=== PATIENT | female | born 1995 | race Caucasian/White ===

== ENCOUNTER 2016-05-27 09:26 | Emergency (ER) | payer OTHER, SELFPAY ==
[2016-05-27] MEDS ORDERED: Diazepam 5 MG TAB ONE (10:06)
[2016-05-27] MEDS ORDERED: Ondansetron ODT 4 MG TAB ONE (10:07)
[2016-05-27] MEDS ORDERED: Meclizine HCl 25 MG TAB ONE (10:07)
== END 2016-05-27 10:28 | disposition home or self-care (01) ==
LOC: MADERS 09:26
DX: H81.13 Benign paroxysmal vertigo, bilateral (principal); F41.9 Anxiety disorder, unspecified; F17.210 Nicotine dependence, cigarettes, uncomplicated
CPT/HCPCS: 99283; Q0162

== ENCOUNTER 2016-07-08 08:12 | Emergency (ER) | payer SELFPAY ==
[2016-07-08] MEDS ORDERED: Ibuprofen 600 MG TAB ONE (08:42)
[2016-07-08] MEDS ORDERED: Benzonatate 100 MG CAP ONE (08:42)
[2016-07-08 09:05] LABS: Bilirubin Negative (Negative); Blood, Urine Negative (Negative); Clarity Clear (Clear); Glucose, Urine (Dipstick) Negative (Negative); Leukocyte Negative (Negative); Nitrite Negative (Negative); Protein, Urine (Dipstick) Negative (Neg-Trace); Specific Gravity, Urine 1.015 (1.005-1.030); Urobilinogen 0.2 mg/dL (0.2-1.0)
== END 2016-07-08 09:17 | disposition home or self-care (01) ==
LOC: MADERS 08:12
DX: J06.9 Acute upper respiratory infection, unspecified (principal); K58.9 Irritable bowel syndrome, unspecified; M79.7 Fibromyalgia; F17.210 Nicotine dependence, cigarettes, uncomplicated
CPT/HCPCS: 81003; 87081; 87430; 99283

== ENCOUNTER 2016-10-01 13:25 | Emergency (ER) | payer SELFPAY ==
[2016-10-01] MEDS ORDERED: Ketorolac Tromethamine 60 MG/2 ML VIAL ONE (14:08)
== END 2016-10-01 14:30 | disposition home or self-care (01) ==
LOC: MADERS 13:25
DX: M41.9 Scoliosis, unspecified (principal); F41.9 Anxiety disorder, unspecified; F17.210 Nicotine dependence, cigarettes, uncomplicated
CPT/HCPCS: 96372; J1885

== ENCOUNTER 2017-05-02 11:43 | Emergency (ER) | payer SELFPAY ==
[2017-05-02] MEDS ORDERED: Metoclopramide HCl 10 MG TAB ONE (12:11)
[2017-05-02] MEDS ORDERED: diphenhydrAMINE 25 MG CAP ONE (12:11)
== END 2017-05-02 12:23 | disposition home or self-care (01) ==
LOC: MADERS 11:43
DX: G43.909 Migraine, unspecified, not intractable, without status migrainosus (principal); H81.13 Benign paroxysmal vertigo, bilateral; K58.9 Irritable bowel syndrome, unspecified; F17.210 Nicotine dependence, cigarettes, uncomplicated; F41.9 Anxiety disorder, unspecified
CPT/HCPCS: 99283

== ENCOUNTER 2017-05-31 10:18 | Emergency (ER) | payer SELFPAY ==
[2017-05-31] MEDS ORDERED: Ondansetron ODT 4 MG TAB ONE (11:32)
[2017-05-31] MEDS ORDERED: Naproxen 500 MG TAB ONE (11:32)
== END 2017-05-31 12:35 | disposition home or self-care (01) ==
LOC: MADERS 10:18
DX: J02.9 Acute pharyngitis, unspecified (principal); F41.9 Anxiety disorder, unspecified; G43.909 Migraine, unspecified, not intractable, without status migrainosus; F17.210 Nicotine dependence, cigarettes, uncomplicated
CPT/HCPCS: 87081; 87430; 99283; Q0162

== ENCOUNTER 2017-06-02 14:58 | Emergency (ER) | payer SELFPAY ==
[2017-06-02] MEDS ORDERED: Ketorolac Tromethamine 30 MG/ML VIAL ONE (15:14)
[2017-06-02 15:23] LABS: Bilirubin Negative (Negative); Blood, Urine Negative (Negative); Clarity Clear (Clear); Glucose, Urine (Dipstick) Negative (Negative); Leukocyte Negative (Negative); Nitrite Negative (Negative); Pregnancy Test - Urine (BHCG) Negative (Negative); Pregu Control Background? CLEAR/WHITE (CLR/WHITE); Pregu Control Bar Appear? YES (CONTROL BAR); Protein, Urine (Dipstick) Negative (Neg-Trace); Urobilinogen 0.2 mg/dL (0.2-1.0)
== END 2017-06-02 15:40 | disposition home or self-care (01) ==
LOC: MADERS 14:58
DX: M54.5 Low back pain (principal); M41.9 Scoliosis, unspecified; K58.9 Irritable bowel syndrome, unspecified; G43.909 Migraine, unspecified, not intractable, without status migrainosus; F41.9 Anxiety disorder, unspecified; F17.210 Nicotine dependence, cigarettes, uncomplicated
CPT/HCPCS: 81003; 81025; 96372; J1885

== ENCOUNTER 2017-07-06 08:07 | Emergency (ER) | payer SELFPAY ==
[2017-07-06] MEDS ORDERED: Benzonatate 100 MG CAP ONE (08:37)
[2017-07-06] MEDS ORDERED: Azithromycin 250 MG TAB ONE (08:38)
[2017-07-06] MEDS ORDERED: Dexamethasone 4 MG TAB ONE (08:38)
== END 2017-07-06 08:45 | disposition home or self-care (01) ==
LOC: MADERS 08:07
DX: J18.9 Pneumonia, unspecified organism (principal); K58.9 Irritable bowel syndrome, unspecified; M41.9 Scoliosis, unspecified; G43.909 Migraine, unspecified, not intractable, without status migrainosus; F41.9 Anxiety disorder, unspecified; F17.210 Nicotine dependence, cigarettes, uncomplicated
CPT/HCPCS: 99283; J8540

== ENCOUNTER 2017-09-16 07:09 | Emergency (ER) | payer SELFPAY ==
[2017-09-16 07:58] LABS: Bilirubin Negative (Negative); Blood, Urine Negative (Negative); Clarity Clear (Clear); Glucose, Urine (Dipstick) Negative (Negative); Leukocyte Negative (Negative); Nitrite Negative (Negative); Protein, Urine (Dipstick) Negative (Neg-Trace); Urobilinogen 0.2 mg/dL (0.2-1.0); pH, Urine 5.5 (5.0-9.0)
[2017-09-16] MEDS ORDERED: Ondansetron ODT 4 MG TAB ONE (07:59)
[2017-09-16] MEDS ORDERED: Ketorolac Tromethamine 30 MG/ML VIAL ONE (07:59)
[2017-09-16 08:03] LABS: Bacteria/HPF Rare-Few HPF (None Seen); Hyaline Casts/LPF NONE SEEN LPF (0-3 Hyaline); RBC/HPF None Seen HPF (0-3); WBC/HPF 0-3 HPF (0-3)
[2017-09-16] MEDS ORDERED: Sodium Chloride 0.9% 1,000 ML BAG ONE (08:03)
[2017-09-16 08:08] LABS: #Basophils 0.1 thou/uL (0.0-0.2); #Eosinphils 0.1 thou/uL (0.0-0.7); #Lymphocytes 2.7 thou/uL (1.20-3.40); #Monocytes 0.7 thou/uL (0.11-0.59); %Basophils 1.2 % (0.0-1.0); %Eosinophils 1.7 % (0.0-10.0); %Lymphocytes 35.9 % (21.0-51.0); %Monocytes 8.5 % (0.0-10.0); %Neutrophils 52.7 % (42.0-75.0); Hemoglobin 13.3 g/dL (12.0-16.0); Mean Corpuscular HGB CONC 34.3 g/dL (32.0-36.0); Mean Corpuscular Hemoglobin 29.6 pg (27.0-31.0); Mean Corpuscular Volume 86.3 fL (78.0-98.0); Mean Platelet Volume 6.9 fL (7.4-10.4); Platelet Count 289 thou/uL (130-400); RBC Distribution Width 10.4 % (11.5-14.5); Red Blood Cell (RBC) Count 4.48 mill/uL (4.20-5.40); White Blood Cell (WBC) Count 7.6 thou/uL (4.8-10.8)
[2017-09-16 08:22] LABS: ALT (SGPT) 13 U/L (8-55); AST (SGOT) 15 U/L (5-34); Albumin 4.2 g/dL (3.5-5.0); Alkaline Phosphatase 72 U/L (40-150); Anion Gap 14 mmol/L (10-20); BUN (Urea Nitrogen) 16 mg/dL (7.0-18.7); Bilirubin, Total 0.3 mg/dL (0.2-1.2); CK (CPK) 62 U/L (29-168); Calc. Creatinine Clearance 0 mL/min (70-130); Calcium 9.3 mg/dL (7.8-10.44); Carbon Dioxide 23 mmol/L (22-29); Chloride 107 mmol/L (98-107); Estimated GFR-MDRD 89; Globulin 2.5 g/dL (2.4-3.5); Glucose 95 mg/dL (70-105); Potassium 3.9 mmol/L (3.5-5.1); Protein, Total 6.7 g/dL (6.0-8.3); Sodium 140 mmol/L (136-145)
[2017-09-16 08:45] LABS: BHCG - Serum Negative (NEGATIVE); Pregs Control Background? CLEAR/WHITE (CLR/WHITE); Pregs Control Bar Appear? YES (CONTROL BAR)
--- NOTE | 2017-09-16 08:49 | RAD ---
2 VIEW CHEST: Date: 09/16/17 HISTORY: Cough. FINDINGS: Lung denis appear clear. No evidence of infiltrate. Heart and mediastinum unremarkable. There is a mild thoracic scoliotic curvature to the right. IMPRESSION: 1. No acute lung process. 2. Mild scoliotic curvature of the thoracic spine. POS: [facility]
[2017-09-16] MEDS ORDERED: Fluconazole 100 MG TAB ONE (09:16)
== END 2017-09-16 09:50 | disposition home or self-care (01) ==
LOC: MADERS 07:09
DX: B37.3 Candidiasis of vulva and vagina (principal); F41.9 Anxiety disorder, unspecified; F17.210 Nicotine dependence, cigarettes, uncomplicated
CPT/HCPCS: 71046; 80053; 81001; 82550; 84703; 85025; 87086; 96361; 96374; J1885; J7050; Q0162

== ENCOUNTER 2017-09-30 08:09 | Emergency (ER) | payer SELFPAY ==
[2017-09-30] MEDS ORDERED: Acetaminophen/Codeine 30-300mg Tablet ONE (08:31)
[2017-09-30] MEDS ORDERED: Naproxen 500 MG TAB ONE (08:32)
[2017-09-30] MEDS ORDERED: Azithromycin 250 MG TAB ONE (08:32)
[2017-09-30] MEDS ORDERED: Sulfameth/Trimethoprim DS 800-160mg TAB ONE (08:32)
== END 2017-09-30 08:50 | disposition home or self-care (01) ==
LOC: MADERS 08:09
DX: K04.7 Periapical abscess without sinus (principal); K02.9 Dental caries, unspecified; K03.81 Cracked tooth; K58.9 Irritable bowel syndrome, unspecified; F41.9 Anxiety disorder, unspecified; F17.210 Nicotine dependence, cigarettes, uncomplicated
CPT/HCPCS: 99282

== ENCOUNTER 2017-10-31 10:20 | Emergency (ER) | payer SELFPAY ==
[~2017-10-31 10:20] MED LIST: Morphine 10 MG/ML CARPUJECT ONE
[2017-10-31] MEDS ORDERED: Clindamycin 150 MG CAP ONE (10:50)
[2017-10-31] MEDS ORDERED: Ketorolac Tromethamine 30 MG/ML VIAL ONE (10:50)
== END 2017-10-31 11:27 | disposition home or self-care (01) ==
LOC: MADERS 10:20
DX: K04.7 Periapical abscess without sinus (principal); F31.9 Bipolar disorder, unspecified; F41.9 Anxiety disorder, unspecified; F20.9 Schizophrenia, unspecified; F17.210 Nicotine dependence, cigarettes, uncomplicated
CPT/HCPCS: 96372; J1885; J2270

== ENCOUNTER 2017-12-19 19:30 | Emergency (ER) | payer SELFPAY | END 2017-12-19 19:54 | disposition home or self-care (01) | LOC: MADERS 19:30 | DX: K08.89 Other specified disorders of teeth and supporting structures (principal); K58.9 Irritable bowel syndrome, unspecified; F41.9 Anxiety disorder, unspecified; F31.9 Bipolar disorder, unspecified; F20.9 Schizophrenia, unspecified; F17.210 Nicotine dependence, cigarettes, uncomplicated; G43.909 Migraine, unspecified, not intractable, without status migrainosus | CPT/HCPCS: 99281 ==

== ENCOUNTER 2018-03-26 13:55 | Emergency (ER) | payer SELFPAY ==
[~2018-03-26 13:55] MED LIST changes: +Iopamidol 370 76% 100 ML VIAL ONE; -Morphine 10 MG/ML CARPUJECT ONE
[2018-03-26 14:50] LABS: Pregnancy Test - Urine (BHCG) Negative (Negative); Pregu Control Background? CLEAR/WHITE (CLR/WHITE); Pregu Control Bar Appear? YES (CONTROL BAR)
[2018-03-26 14:51] LABS: Bilirubin Negative (Negative); Blood, Urine Negative (Negative); Clarity Clear (Clear); Glucose, Urine (Dipstick) Negative (Negative); Leukocyte Negative (Negative); Nitrite Negative (Negative); Protein, Urine (Dipstick) Negative (Neg-Trace); Urobilinogen 0.2 mg/dL (0.2-1.0)
[2018-03-26 14:54] LABS: #Basophils 0.1 thou/uL (0.0-0.2); #Eosinphils 0.1 thou/uL (0.0-0.7); #Lymphocytes 1.9 thou/uL (1.20-3.40); #Monocytes 0.8 thou/uL (0.11-0.59); #Neutrophils 7.8 thou/uL (1.40-6.50); %Basophils 0.8 % (0.0-1.0); %Eosinophils 0.7 % (0.0-10.0); %Monocytes 7.7 % (0.0-10.0); %Neutrophils 72.7 % (42.0-75.0); Hemoglobin 13.5 g/dL (12.0-16.0); Mean Corpuscular HGB CONC 33.7 g/dL (32.0-36.0); Mean Corpuscular Hemoglobin 30.6 pg (27.0-31.0); Mean Corpuscular Volume 90.8 fL (78.0-98.0); Mean Platelet Volume 6.5 fL (7.4-10.4); Platelet Count 374 thou/uL (130-400); RBC Distribution Width 11.4 % (11.5-14.5); Red Blood Cell (RBC) Count 4.43 mill/uL (4.20-5.40); White Blood Cell (WBC) Count 10.7 thou/uL (4.8-10.8)
[2018-03-26 15:00] LABS: Amphetamine Detected (NotDetected); Barbiturates Screen Not Detected (NotDetected); Benzodiazepine Screen Detected (NotDetected); Cocaine Metabolite Screen Not Detected (NotDetected); Medtox Control Line Valid? VALID (VALID); Methadone Not Detected (NotDetected); Methamphetamine Detected (NotDetected); Opiate Screen Detected (NotDetected); Oxycodone Screen Not Detected (NotDetected); Phencyclidine (PCP) Not Detected (NotDetected); THC/Cannabinoid Screen Not Detected (NotDetected); Tricyclic Screen Not Detected (NotDetected)
[2018-03-26] MEDS ORDERED: Fentanyl 100 MCG/2 ML VIAL ONE (15:00)
[2018-03-26] MEDS ORDERED: Ondansetron PF 4 MG/2 ML Vial ONE (15:00)
--- NOTE | 2018-03-26 15:44 | CT ---
CT NECK WITH CONTRAST: INDICATIONS: Injury to neck yesterday with swelling on right side of neck. TECHNIQUE: Multiple axial tomograms obtained through the neck with IV enhancement. FINDINGS: The parotid glands and submandibular glands show symmetric enhancement and appear unremarkable. The thyroid is unremarkable. There is an abnormal area of low attenuation in the right neck, along the lateral border of the right sternocleidomastoid muscle, and extending slightly anterior to the right sternocleidomastoid muscle, abutting the right submandibular gland. This measures 3 cm in AP dimension x approximately 1.5 cm i n width. It does exhibit some mild peripheral enhancement with a low attenuation center. Considerat ions include soft tissue hematoma and abscess. The nasopharynx is unremarkable. The oropharynx shows a prominent Waldeyer's ring and tonsillar tiss ue. The hypopharynx and larynx are unremarkable. The parapharyngeal space, the doping supervisor space, an d the retropharyngeal space are unremarkable. The paranasal sinuses and mastoids are well aerated and clear. The cervical spine is unremarkable. Review of the lymph nodes shows no evidence of adenopathy. Nonspecific level II jugulodigastric node s are seen bilaterally. IMPRESSION: There is a peripherally-enhancing, irregularly-shaped, low-density mass lesion in the right neck, liu ng the lateral margin of the sternocleidomastoid muscle, as described above. Findings may represent hematoma given the history of trauma. Abscess cannot be excluded radiographically. Continued follow up to ensure resolution is recommended. POS: [facility]
[2018-03-26 15:54] LABS: ALT (SGPT) 24 U/L (8-55); AST (SGOT) 28 U/L (5-34); Alkaline Phosphatase 96 U/L (40-150); Anion Gap 14 mmol/L (10-20); BUN (Urea Nitrogen) 11 mg/dL (7.0-18.7); Bilirubin, Total 0.3 mg/dL (0.2-1.2); Calc. Creatinine Clearance 0 mL/min (70-130); Calcium 9.3 mg/dL (7.8-10.44); Carbon Dioxide 22 mmol/L (22-29); Chloride 107 mmol/L (98-107); Estimated GFR-MDRD Greater than 90; Globulin 3.2 g/dL (2.4-3.5); Glucose 100 mg/dL (70-105); Potassium 3.4 mmol/L (3.5-5.1); Protein, Total 7.2 g/dL (6.0-8.3); Sodium 140 mmol/L (136-145)
--- NOTE | 2018-03-26 15:59 | RAD ---
CHEST TWO VIEWS WITH RIGHT RIBS FOUR VIEWS: INDICATIONS: History of trauma with chest pain. COMPARISON: 10/27/2014 FINDINGS: The thoracic scoliosis is stable. The lungs are clear. No pneumothorax is evident. No displaced ri b fracture is evident. There is a healed posterolateral right 7th rib fracture. No acute fracture i s grossly evident. There is contrast within the renal collecting system, most likely from the patien t's recent CT evaluation of the soft tissues of the neck, performed on 03/26/2018. IMPRESSION: 1. No acute displaced rib fracture. 2. Chronic healed right posterolateral 7th rib fracture. POS: [facility]
== END 2018-03-26 16:20 | disposition home or self-care (01) ==
LOC: MADERS 13:55
DX: S10.93XA Contusion of unspecified part of neck, initial encounter (principal); S20.211A Contusion of right front wall of thorax, initial encounter; G43.909 Migraine, unspecified, not intractable, without status migrainosus; F41.9 Anxiety disorder, unspecified; F31.9 Bipolar disorder, unspecified; F20.9 Schizophrenia, unspecified; F17.210 Nicotine dependence, cigarettes, uncomplicated; K58.9 Irritable bowel syndrome, unspecified; Y04.8XXA Assault by other bodily force, initial encounter; M41.9 Scoliosis, unspecified
CPT/HCPCS: 70491; 80053; 80306; 81003; 81025; 82550; 85025; 96374; 96375; J2405; J3010

== ENCOUNTER 2018-03-28 08:27 | Emergency (ER) | payer SELFPAY ==
[~2018-03-28 08:27] MED LIST changes: -Iopamidol 370 76% 100 ML VIAL ONE; +Sodium Chloride Irrig Solution 250 ML BOT ONE
[2018-03-28] MEDS ORDERED: Lidocaine 1% w/Epinephrine 1:100K 30 ML VIAL ONE (09:04)
[2018-03-28] MEDS ORDERED: Triple Antibiotic Oint 1 GM Packet ONE (09:29)
[2018-03-28] MEDS ORDERED: Adacel (T-DAP) 0.5 ML SYRINGE ONE (09:49)
== END 2018-03-28 10:03 | disposition home or self-care (01) ==
LOC: MADERS 08:27
DX: S91.012A Laceration without foreign body, left ankle, initial encounter (principal); G43.909 Migraine, unspecified, not intractable, without status migrainosus; F41.9 Anxiety disorder, unspecified; F31.9 Bipolar disorder, unspecified; F20.9 Schizophrenia, unspecified; F17.210 Nicotine dependence, cigarettes, uncomplicated; W26.8XXA Contact with other sharp object(s), not elsewhere classified, initial encounter
CPT/HCPCS: 12002; 90471; 90715; J2001

== ENCOUNTER 2018-07-07 15:14 | Emergency (ER) | payer SELFPAY ==
[~2018-07-07 15:14] MED LIST changes: +Lidocaine 1% w/Epinephrine 1:100K 30 ML VIAL ONE
[2018-07-07] MEDS ORDERED: Clindamycin 150 MG CAP ONE (16:46)
[2018-07-07] MEDS ORDERED: Adacel (T-DAP) 0.5 ML SYRINGE ONE (16:46)
--- NOTE | 2018-07-07 17:02 | RAD ---
TWO VIEWS RIGHT FOREARM 07/07/18 HISTORY: Patient with history of right forearm pain. AP and lateral views right forearm is obtained. No evidence of right forearm fractures, subluxations, or bony lesions seen. IMPRESSION: Unremarkable two views right forearm. POS: [facility]
== END 2018-07-07 16:59 | disposition home or self-care (01) ==
LOC: MADERS 15:14
DX: L02.413 Cutaneous abscess of right upper limb (principal); L03.113 Cellulitis of right upper limb; F15.10 Other stimulant abuse, uncomplicated; F41.9 Anxiety disorder, unspecified; F25.9 Schizoaffective disorder, unspecified; F17.210 Nicotine dependence, cigarettes, uncomplicated; K58.9 Irritable bowel syndrome, unspecified
CPT/HCPCS: 10060; 90471; 90715; J2001

== ENCOUNTER 2018-11-19 21:42 | Emergency (ER) | payer SELFPAY ==
[2018-11-19] MEDS ORDERED: predniSONE 20 MG TAB ONE (22:27)
== END 2018-11-19 22:36 | disposition home or self-care (01) ==
LOC: MADERS 21:42
DX: J02.9 Acute pharyngitis, unspecified (principal); J45.909 Unspecified asthma, uncomplicated; G43.909 Migraine, unspecified, not intractable, without status migrainosus; F31.9 Bipolar disorder, unspecified; F20.9 Schizophrenia, unspecified; F41.9 Anxiety disorder, unspecified; F17.210 Nicotine dependence, cigarettes, uncomplicated
CPT/HCPCS: 87081; 87430; 99283; J7512

== ENCOUNTER 2019-11-01 16:16 | Emergency (ER) | payer SELFPAY ==
[2019-11-01] MEDS ORDERED: Ketorolac Tromethamine 30 MG/ML VIAL ONE (16:43)
[2019-11-01] MEDS ORDERED: Lidocaine 1% 20 ML MDV ONE (16:51)
[2019-11-01] MEDS ORDERED: Lidocaine 2% w/Epinephrine 1:200K 20 ML VIAL ONE (17:25)
--- NOTE | 2019-11-01 17:32 | RAD ---
LEFT ANKLE 3 VIEWS: Date: 11/01/2019 COMPARISON: None. HISTORY: Trauma, pain. FINDINGS: There is soft tissue swelling overlying the lateral malleolus. There is a fracture involving the late ral cortex of the distal aspect of the lateral malleolus with no significant displacement. No disloca tion or additional fracture is seen. IMPRESSION: Fracture involving the lateral cortex of the distal left fibula with associated soft tissue swelling. POS: [facility]
[2019-11-01] MEDS ORDERED: Triple Antibiotic Oint 1 GM Packet ONE (17:54)
[2019-11-01] MEDS ORDERED: Ondansetron ODT 4 MG TAB ONE (17:54)
[2019-11-01] MEDS ORDERED: Sulfameth/Trimethoprim DS 800-160mg TAB ONE (18:12)
[2019-11-01] MEDS ORDERED: Cephalexin 500 MG CAP ONE (18:12)
== END 2019-11-01 18:25 | disposition home or self-care (01) ==
LOC: MADERS 16:16
DX: S82.65XA Nondisplaced fracture of lateral malleolus of left fibula, initial encounter for closed fracture (principal); S91.012A Laceration without foreign body, left ankle, initial encounter; M79.7 Fibromyalgia; J45.909 Unspecified asthma, uncomplicated; G43.909 Migraine, unspecified, not intractable, without status migrainosus; F41.9 Anxiety disorder, unspecified; F31.9 Bipolar disorder, unspecified; F20.9 Schizophrenia, unspecified; F17.210 Nicotine dependence, cigarettes, uncomplicated; Z79.899 Other long term (current) drug therapy; Y00.XXXA Assault by blunt object, initial encounter
CPT/HCPCS: 12001; 96372; J1885; J2001; Q0162

== ENCOUNTER 2019-12-31 05:20 | Emergency (ER) | payer OTHER, SELFPAY ==
[2019-12-31] MEDS ORDERED: predniSONE 20 MG TAB ONE (06:03)
[2019-12-31] MEDS ORDERED: Azithromycin 250 MG TAB ONE (06:03)
[2019-12-31 19:12] LABS: SARS-CoV-2 MS2 Positive; SARS-CoV-2 N Gene Negative; SARS-CoV-2 S Gene Negative; SARS-CoV-2 by NAA Not Detected (NotDetected); SARS-CoV-2 orf1ab Negative
== END 2019-12-31 06:10 | disposition home or self-care (01) ==
LOC: MADERS 05:20
DX: J02.0 Streptococcal pharyngitis (principal); Z20.828 Contact with and (suspected) exposure to other viral communicable diseases; I10 Essential (primary) hypertension; J45.909 Unspecified asthma, uncomplicated; M79.7 Fibromyalgia; G43.909 Migraine, unspecified, not intractable, without status migrainosus; F41.9 Anxiety disorder, unspecified; F31.9 Bipolar disorder, unspecified; F20.9 Schizophrenia, unspecified; F17.210 Nicotine dependence, cigarettes, uncomplicated; Z79.899 Other long term (current) drug therapy
CPT/HCPCS: 87635; 99406; J7512; U0003

== ENCOUNTER 2020-02-12 09:22 | Emergency (ER) | payer OTHER, SELFPAY | END 2020-02-12 10:18 | disposition home or self-care (01) | LOC: MADERS 09:22 | DX: H60.91 Unspecified otitis externa, right ear (principal); I10 Essential (primary) hypertension; J45.909 Unspecified asthma, uncomplicated; M79.7 Fibromyalgia; G43.909 Migraine, unspecified, not intractable, without status migrainosus; F41.9 Anxiety disorder, unspecified; F31.9 Bipolar disorder, unspecified; F20.9 Schizophrenia, unspecified; F17.210 Nicotine dependence, cigarettes, uncomplicated; Z79.899 Other long term (current) drug therapy | CPT/HCPCS: 99406 ==

== ENCOUNTER 2020-04-13 11:01 | Emergency (ER) | payer SELFPAY ==
--- NOTE | 2020-04-13 12:07 | RAD ---
Exam:3 views left foot HISTORY: Evaluate for foreign body COMPARISON: None FINDINGS: No fracture, cortical irregularity or periosteal reaction. Lisfranc alignment is maintained . Joint spaces are preserved. No radiopaque foreign body. IMPRESSION: No radiopaque foreign body.
== END 2020-04-13 12:15 | disposition home or self-care (01) ==
LOC: MADERS 11:01
DX: S90.812A Abrasion, left foot, initial encounter (principal); I10 Essential (primary) hypertension; K58.9 Irritable bowel syndrome, unspecified; J45.909 Unspecified asthma, uncomplicated; M41.9 Scoliosis, unspecified; G43.909 Migraine, unspecified, not intractable, without status migrainosus; F17.210 Nicotine dependence, cigarettes, uncomplicated; Z79.899 Other long term (current) drug therapy; W26.9XXA Contact with unspecified sharp object(s), initial encounter

== ENCOUNTER 2020-07-25 06:53 | Emergency (ER) | payer BC, SELFPAY ==
[2020-07-25 21:02] LABS: SARS-CoV-2 PCR by NAA Not Detected (NotDetected)
== END 2020-07-25 07:50 ==
LOC: MADERS 06:53
DX: Z20.822 Contact with and (suspected) exposure to COVID-19 (principal); M41.9 Scoliosis, unspecified; G43.909 Migraine, unspecified, not intractable, without status migrainosus; K58.9 Irritable bowel syndrome, unspecified; I10 Essential (primary) hypertension; J45.909 Unspecified asthma, uncomplicated; F17.210 Nicotine dependence, cigarettes, uncomplicated; Z79.899 Other long term (current) drug therapy
CPT/HCPCS: 87635; 99283; U0003; U0005

== ENCOUNTER 2020-12-10 17:55 | Emergency (ER) | payer SELFPAY ==
[2020-12-10 18:59] LABS: SARS-CoV-2 NAA Rapid Test Not Detected (NotDetected)
== END 2020-12-10 19:09 | disposition home or self-care (01) ==
LOC: MADERS 17:55
DX: R05 Cough (principal); R43.8 Other disturbances of smell and taste; R52 Pain, unspecified; Z20.822 Contact with and (suspected) exposure to COVID-19; M41.9 Scoliosis, unspecified; I10 Essential (primary) hypertension; G43.909 Migraine, unspecified, not intractable, without status migrainosus; K58.9 Irritable bowel syndrome, unspecified; J45.909 Unspecified asthma, uncomplicated; F17.210 Nicotine dependence, cigarettes, uncomplicated
CPT/HCPCS: 99283; U0002

== ENCOUNTER 2020-12-10 21:45 | Emergency (ER) | payer SELFPAY ==
[~2020-12-10 21:45] MED LIST changes: +Iopamidol 370 76% 125 ML VIAL FS ONE; -Lidocaine 1% w/Epinephrine 1:100K 30 ML VIAL ONE; -Sodium Chloride Irrig Solution 250 ML BOT ONE
[2020-12-10] MEDS ORDERED: Ketorolac Tromethamine 30 MG/ML VIAL ONE (23:54)
== END 2020-12-11 00:08 ==
LOC: MADERS 21:45
DX: S10.93XA Contusion of unspecified part of neck, initial encounter (principal); M79.12 Myalgia of auxiliary muscles, head and neck; J45.909 Unspecified asthma, uncomplicated; R73.03 Prediabetes; M41.9 Scoliosis, unspecified; K21.9 Gastro-esophageal reflux disease without esophagitis; K58.9 Irritable bowel syndrome, unspecified; G43.909 Migraine, unspecified, not intractable, without status migrainosus; I10 Essential (primary) hypertension; G40.909 Epilepsy, unspecified, not intractable, without status epilepticus; Z79.1 Long term (current) use of non-steroidal anti-inflammatories (NSAID); Y04.0XXA Assault by unarmed brawl or fight, initial encounter
CPT/HCPCS: 70450; 70498; 72125; J1885; Q9967

== ENCOUNTER 2022-01-07 21:35 | Emergency (ER) | payer OTHER, SELFPAY ==
[~2022-01-07 21:35] MED LIST changes: +Iopamidol 370 76% 100 ML VIAL ONE; -Iopamidol 370 76% 125 ML VIAL FS ONE
[2022-01-07] MEDS ORDERED: Fentanyl 100 MCG/2 ML VIAL ONE (23:09)
[2022-01-07 23:24] LABS: #Basophils 0.1 thou/uL (0.0-0.2); #Eosinphils 0.3 thou/uL (0.0-0.7); #Lymphocytes 2.4 thou/uL (1.20-3.40); #Neutrophils 8.5 thou/uL (1.40-6.50); %Basophils 0.6 % (0.0-1.0); %Eosinophils 2.8 % (0.0-10.0); %Lymphocytes 19.5 % (21.0-51.0); %Monocytes 8.1 % (0.0-10.0); Mean Corpuscular HGB CONC 32.8 g/dL (32.0-36.0); Mean Corpuscular Hemoglobin 29.9 pg (27.0-31.0); Mean Corpuscular Volume 91.1 fL (78.0-98.0); Mean Platelet Volume 6.5 fL (7.4-10.4); Platelet Count 338 thou/uL (130-400); RBC Distribution Width 11.3 % (11.5-14.5); Red Blood Cell (RBC) Count 4.34 mill/uL (4.20-5.40); White Blood Cell (WBC) Count 12.3 thou/uL (4.8-10.8)
[2022-01-07] MEDS ORDERED: Gentamicin 80 MG/2 ML VIAL ONE (23:28)
[2022-01-07 23:37] LABS: BHCG - Serum Negative (NEGATIVE); Pregs Control Background? CLEAR/WHITE (CLR/WHITE); Pregs Control Bar Appear? YES (CONTROL BAR)
[2022-01-07 23:45] LABS: ALT (SGPT) 17 U/L (8-55); AST (SGOT) 16 U/L (5-34); Albumin 4.5 g/dL (3.5-5.0); Alkaline Phosphatase 74 U/L (40-110); Anion Gap 12 mmol/L (10-20); BUN (Urea Nitrogen) 13 mg/dL (7.0-18.7); Bilirubin, Total 0.4 mg/dL (0.2-1.2); Calc. Creatinine Clearance 0 mL/min (70-130); Calcium 9.2 mg/dL (7.8-10.44); Carbon Dioxide 24 mmol/L (22-29); Chloride 107 mmol/L (98-107); Estimated GFR 97; Globulin 2.6 g/dL (2.4-3.5); Glucose 89 mg/dL (70-105); Lipase 33 U/L (8-78); Potassium 3.8 mmol/L (3.5-5.1); Protein, Total 7.1 g/dL (6.0-8.3); Sodium 139 mmol/L (136-145)
[2022-01-08] MEDS ORDERED: Orphenadrine Citrate 60 MG/2 ML VIAL ONE (00:11)
[2022-01-08] MEDS ORDERED: Morphine 4 MG/ML VIAL ONE (00:11)
[2022-01-08] MEDS ORDERED: Bacitracin 1 PK ONE (00:53)
[2022-01-08] MEDS ORDERED: Ketorolac Tromethamine 30 MG/ML VIAL ONE (01:16)
== END 2022-01-08 01:36 | disposition home or self-care (01) ==
LOC: MADERS 21:35
DX: S06.0X0A Concussion without loss of consciousness, initial encounter (principal); S81.012A Laceration without foreign body, left knee, initial encounter; S60.512A Abrasion of left hand, initial encounter; S80.211A Abrasion, right knee, initial encounter; K21.9 Gastro-esophageal reflux disease without esophagitis; I10 Essential (primary) hypertension; G40.909 Epilepsy, unspecified, not intractable, without status epilepticus; M41.9 Scoliosis, unspecified; K58.9 Irritable bowel syndrome, unspecified; M79.7 Fibromyalgia; F17.210 Nicotine dependence, cigarettes, uncomplicated; V20.1 Motorcycle passenger injured in collision with pedestrian or animal in nontraffic accident
CPT/HCPCS: 70450; 74177; 80053; 83690; 84703; 85025; 94760; 96372; 96374; J1580; J1885; J2270; J2360; J3010; Q9967

== ENCOUNTER 2024-12-24 18:16 | Emergency (ER) | payer OTHER, SELFPAY ==
[2024-12-24] MEDS ORDERED: Clindamycin 150 MG CAP ONE (19:36)
== END 2024-12-24 20:00 | disposition home or self-care (01) ==
LOC: MADERS 18:16
DX: K04.7 Periapical abscess without sinus (principal); I10 Essential (primary) hypertension; F17.210 Nicotine dependence, cigarettes, uncomplicated; F17.290 Nicotine dependence, other tobacco product, uncomplicated
CPT/HCPCS: 96372; 99282; J2919